=== PATIENT | female | born 1970 | race African-American/Black ===

== ENCOUNTER 2017-12-02 08:09 | Observation (INO) | payer BC ==
[2017-12-02 08:15] VITALS: BMI 32.4
[2017-12-02] MEDS ORDERED: morphine CARPU-JECT 4 MG/1 ML DISP.SYRIN IVPUSH ONE (08:19)
[2017-12-02] MEDS ORDERED: ONDANSETRON 4 MG/2 ML VIAL IVPUSH ONE (08:19)
--- NOTE | 2017-12-02 08:30 | PDOC ---
Attending Attestation - HPI HPI: 12/02/17 09:27 The patient is a 47 year old female, with a significant PMH of graves disease, celiacs disease, cholecystectomy (surgery performed at [place], [place]), partial bowel obstruction (no surgery, 2011) who presents to the emergency department with epigastric abdominal pain since 3 am this morning. The patient reports the abdominal pain as diffuse but located mostly in the epigastric region. The patient also reports nausea and vomiting beginning around 5 am (non bloody, non bilious). The patient states her last bowel movement was yesterday which she describes as normal (denies diarrhea, melena, hematochezia). The patient denies chest pain, shortness of breath, headache and dizziness. Denies fever, chills, diarrhea and constipation. Denies dysuria, frequency, urgency and hematuria. Allergies: NKA Past surgical history: cholecystectomy (surgery performed at [place], [place]) - Physicial Exam PE: 12/02/17 09:40 Vitals: Triage vital signs reviewed General Appearance: No acute distress, well nourished, well developed Head: Atraumatic Neck: Supple; No nuchal rigidity Chest Wall: Nontender Cardiac: Regular rate and rhythm, no murmurs, no rubs, no gallops Lungs: Clear to auscultation bilateral, good air movement bilaterally Abdomen: (+) Tenderness to the epigastric region. No guarding. No rebound. Soft , nondistended. Rectal: Exam deferred Extremities: Full range of motion to all extremities, no cyanosis, clubbing, or edema Skin: Warm and dry, no rashes or lesions, no rash, no petechiae Neuro: AOX3; Cranial Nerves 2-12 grossly intact, Strength intact to all extremities, Sensation intact to all extremities, gait normal Psych: Normal mood, normal affect - Medical Decision Making 12/02/17 09:28 The patient is a 47 year old female, with a significant PMH of graves disease, celiacs disease, cholecystectomy (surgery performed at [place], [place]), partial bowel obstruction (no surgery, 2011) who presents to the emergency department with epigastric abdominal pain since 3 am this morning and nausea with vomiting since 5 am. Plan: Labs, EKG, Meds, Abdomen-KUB, Abdomen and Pelvis CT w/ contrast. Documentation prepared by Alin Alonso, acting as medical administrative specialist for Dustin Sherman MD. <Alin Alonso - Last Filed: 12/02/17 09:52> - Resident Resident Name: Juan Carlos Zhang - ED Attending Attestation I have performed the following: I have examined & evaluated the patient, The case was reviewed & discussed with the resident, I agree w/resident's findings & plan, Exceptions are as noted - Medical Decision Making 12/02/17 12:09 Differential diagnosis includes partial small bowel obstruction celiac disease viral gastrointestinal illness: We'll treat with pain meds and antiemetics IV fluids CAT scan with IV contrast observe and reassess Reevaluation: 11:45 PM CAT scan findings as dictated. No acute pathology noted on CAT scan. Patient still with persistent nausea vomiting abdominal discomfort despite 2 rounds of IV pain medication at this point we'll observe overnight for pain control additional antiemetics and further management. <Dustin Sherman - Last Filed: 12/02/17 15:49>
[2017-12-02] MEDS ORDERED: ONDANSETRON 4 MG/2 ML VIAL ONE ×3 (08:31→11:22)
[2017-12-02] MEDS ORDERED: morphine SULFATE 4 MG/ML VIAL ONE ×3 (08:31→13:44)
[2017-12-02] MEDS ORDERED: FAMOTIDINE IV 20 MG/12 ML VIAL IVPUSH ONE (08:37)
[2017-12-02 08:46] LABS: BASO % 0.6 % (0-2.0); EOS % 1.1 % (0-4.5); HEMATOCRIT 41.3 % (32.4-45.2); HEMOGLOBIN 13.8 GM/dL (10.7-15.3); LYMPH % 21.9 % (8-40); MCH 30.8 pg (25.7-33.7); MCHC 33.5 g/dl (32.0-36.0); MEAN PLT VOLUME 7.9 fl (7.5-11.1); MONO % 6.6 % (3.8-10.2); NEUT % 69.8 % (42.8-82.8); PLATELET COUNT 342 K/MM3 (134-434); RBC 4.49 M/mm3 (3.60-5.2)
[2017-12-02 08:53] LABS: INR 0.99 (0.82-1.09); PROTHROMBIN TIME (PATIENT) 11.2 SEC (9.7-13.0)
--- NOTE | 2017-12-02 08:55 | PDOC ---
History of Present Illness - General Chief Complaint: Pain, Acute Stated Complaint: NAUSEA, ABD PAIN Time Seen by Provider: 12/02/17 08:17 History Source: Patient Exam Limitations: No Limitations - History of Present Illness Initial Comments: 12/02/17 08:46 47f with pmh of partial bowel obstruction, Grave's disease and celiac disease presents to the ED with nausea, vomiting and abdominal pain since 3am this morning with the first episode of vomiting happening around 5am. Last moved her bowels yesterday morning. Denies blood in the vomitus, diarrhea, chest pain, dysuria. Past History - Past Medical History Allergies/Adverse Reactions: Allergies Allergy/AdvReac Type Severity Reaction Status Date / Time No Known Allergies Allergy Verified 12/02/17 08:12 Home Medications: Ambulatory Orders Prednisone 10 mg PO DAILY 12/02/17 COPD: No Thyroid Disease: Yes Other medical history: graves disease, celiac disease - Surgical History Cholecystectomy: Yes - Immunization History Immunization Up to Date: Yes - Suicide/Smoking/Psychosocial Hx Smoking History: Current every day smoker Number of Cigarettes Smoked Daily: 3 Information on smoking cessation initiated: Yes 'Breaking Loose' booklet given: 12/02/17 Hx Alcohol Use: No Drug/Substance Use Hx: No Review of Systems - Review of Systems Able to Perform ROS?: Yes Is the patient limited Algerian proficient: No Constitutional: Yes: Loss of Appetite. No: Unexplained wgt Loss HEENTM: No: Symptoms Reported Respiratory: No: Symptoms reported Cardiac (ROS): No: Symptoms Reported ABD/GI: Yes: Abdominal Distended, Nausea, Poor Appetite, Poor Fluid Intake, Vomiting, Abdominal cramping : No: Symptoms Reported Musculoskeletal: No: Symptoms Reported Integumentary: No: Symptoms Reported All Other Systems: Reviewed and Negative *Physical Exam - Vital Signs Last Vital Signs Temp Pulse Resp BP Pulse Ox 97.9 F 89 18 145/109 100 12/02/17 08:12 12/02/17 08:12 12/02/17 08:12 12/02/17 08:12 12/02/17 08:12 - Physical Exam General Appearance: Yes: Nourished, Appropriately Dressed, Moderate Distress HEENT: positive: EOMI, SHER, Normal ENT Inspection Respiratory/Chest: positive: Lungs Clear, Normal Breath Sounds. negative: Chest Tender, Respiratory Distress Cardiovascular: positive: Regular Rhythm, Regular Rate, S1, S2 Gastrointestinal/Abdominal: positive: Tender (upper quadrants), Flat, Soft, Decreased BS, Distended. negative: Guarding Musculoskeletal: positive: Normal Inspection. negative: CVA Tenderness Integumentary: positive: Normal Color, Dry, Warm Neurologic: positive: Fully Oriented, Alert, Normal Mood/Affect ED Treatment Course - LABORATORY CBC & Chemistry Diagram: 12/02/17 08:15 12/02/17 08:15 - RADIOLOGY Radiology Studies Ordered: Category Date Time Status ABDOMEN-KUB FLAT PLATE [RAD] Stat Radiology 12/02/17 08:18 Ordered - Medications Given in the ED: ED Medications Discontinued Medications Generic Name Dose Route Start Last Admin Trade Name Freq PRN Reason Stop Dose Admin Morphine Sulfate 4 mg 12/02/17 08:19 12/02/17 08:29 Morphine Injection - IVPUSH 12/02/17 08:20 4 mg ONCE ONE Administration Ondansetron HCl 4 mg 12/02/17 08:19 12/02/17 08:29 Zofran Injection IVPUSH 12/02/17 08:20 4 mg ONCE ONE Administration Medical Decision Making - Medical Decision Making 12/02/17 09:33 47f with pmh of celiac, part sbo and graves presents with nausea, vomiting and abdominal pain since 5am. Will evaluate for sbo with basic labs, lactate and flat plate manage discomfort with Zofran, fluids and morphine 12/02/17 09:42 Beta negative, lactate 2.1 12/02/17 10:01 Abdominal xray KUB-Flat plate: No evidence of intestinal obstruction. The right diaphragm is elevated. Right upper quadrant surgical clips. IUD is noted. 12/02/17 10:57 No evidence of SBO or acute pathology within the abdomen or pelvis. This is likely gastroenteritis/gastritis. Will give hydrate, reassess 12/02/17 12:05 Hospitalist microblogged for admission *DC/Admit/Observation/Transfer Diagnosis at time of Disposition: Intractable abdominal pain - Discharge Dispostion Admit: Yes - Referrals - Patient Instructions - Post Discharge Activity
[2017-12-02 09:04] LABS: ALBUMIN 4.1 g/dl (3.4-5.0); ANION GAP 12 (8-16); BLOOD UREA NITROGEN 14 mg/dL (7-18); CALCIUM 9.2 mg/dL (8.5-10.1); CHLORIDE 103 mmol/L (98-107); CO2 22 mmol/L (21-32); CREATININE 1.1 mg/dL (0.55-1.02); GLUCOSE,RANDOM 93 mg/dL (74-106); POTASSIUM 3.7 mmol/L (3.5-5.1); SGOT/AST 15 U/L (15-37); SGPT/ALT 18 U/L (12-78); SODIUM 137 mmol/L (136-145); TOT PROT 7.7 g/dl (6.4-8.2)
[2017-12-02 09:05] LABS: ALK PHOS 67 U/L (45-117)
[2017-12-02] MEDS ORDERED: FAMOTIDINE 20 MG/50 ML IVPB 20 MG/50 ML MG IVPB ONE (09:30)
[2017-12-02 09:37] LABS: URINE APPEARANCE SLCLOUDY; URINE BILIRUBIN NEGATIVE (<2.0 mg/dL); URINE COLOR LTYELLOW; URINE GLUCOSE (UA) NEGATIVE (NEGATIVE); URINE KETONE TRACE (NEGATIVE); URINE LEUK ESTERASE NEGATIVE (NEGATIVE); URINE NITRITE NEGATIVE (NEGATIVE); URINE PROTEIN NEGATIVE (NEGATIVE); URINE UROBILINOGEN NEGATIVE mg/dL (0.2-1.0)
--- NOTE | 2017-12-02 09:42 | EKG ---
Test Reason : Blood Pressure : / mmHG Vent. Rate : 062 BPM Atrial Rate : 062 BPM P-R Int : 200 ms QRS Dur : 078 ms QT Int : 404 ms P-R-T Axes : 052 034 037 degrees QTc Int : 410 ms NORMAL SINUS RHYTHM WITH SINUS ARRHYTHMIA NONSPECIFIC ST ABNORMALITY ABNORMAL ECG NO PREVIOUS ECGS AVAILABLE Confirmed by LAUREL CHOWDHURY MD ([id number]) on 12/02/2017 9:41:50 AM Referred By: Confirmed By:LAUREL CHOWDHURY MD
[2017-12-02] MEDS ORDERED: SODIUM CHLORIDE 0.9% 1000 ML INFUS.BAG IV ONE (10:56)
[2017-12-02] MEDS ORDERED: LIDOCAINE VISCOUS 2% ORAL/TOP 20 ML UNIT-DOSE CUP MM ONE (11:12)
[2017-12-02] MEDS ORDERED: ONDANSETRON 4 MG/2 ML VIAL IVPB ONE (11:12)
[2017-12-02] MEDS ORDERED: MAG HYDROX/AL HYDROX/SIMETH 30 ML UNIT-DOSE CUP PO ONE (11:12)
[2017-12-02] MEDS ORDERED: morphine CARPU-JECT 2 MG/1 ML DISP.SYRIN IVPUSH ONE (11:13)
[2017-12-02] MEDS ORDERED: MAG HYDROX/AL HYDROX/SIMETH 30 ML UNIT-DOSE CUP ONE (11:18)
[2017-12-02] MEDS ORDERED: LIDOCAINE VISCOUS 2% ORAL/TOP 20 ML UNIT-DOSE CUP ONE (11:21)
--- NOTE | 2017-12-02 12:40 | HP ---
CHIEF COMPLAINT: Vomiting PCP: Unknown HISTORY OF PRESENT ILLNESS: 47 yo woman with pmh of partial SBO, graves disease, celiac dz who presents to ED with N/V and abdominal pain beginning this AM. Pt was in her usual state of health until this morning around 3AM, when she reports the onset of acute, diffuse abdominal pain, mainly localizing to epigastrium. Pt similarly endorses N/V beginning at 5AM. Last BM was in the evening the day before yesterday; normal in caliber, brown and soft, with no blood. Pt with no appetite and persistent Nonbloody nonbilious vomiting since 5AM. Able to tolerate clears PO, however vomits them up 20 minutes later. Pt describes pain as diffuse, burning, bandlike, focally tender in epigastrium, with sharp focal pain in lower back. Pt with chronic constipation, however takes no medication and no recent changes in stooling. Pt states she did have mild gastric pain one week prior and has been very vigilant about her diet since then. Denies f/c, diarrhea, cp, sob, ZHU , dizziness, diarrhea, constipation, dysuria, frequency, urgency, hematuria, melena, hematochezia. Pt with no dietary changes, sick contacts, recent travel. No hx of IBD, pancreatitis, GERD, gastritis. Pt with prior colonoscopy and EGD in 2012 at time of diagnosis of celiac dz. Results were normal. Pt is visiting from [place] to see her mother who is on hospice at [facility]. She intermittently follows with a senior cognos developer at [facility]. ER course was notable for: (1)Normal vitals (2)No lab abnormalities (3)Imaging negative for acute abdominal process Recent Travel: None PAST MEDICAL HISTORY: Partial SBO (secondary to ?intestinal edema/inflammation) Graves dz Celiac disease Drug-induced lupus Fibromyalgia PAST SURGICAL HISTORY: GB removal (complicated by sepsis) Social History: Smoking: current smoker, 3 cigs/day Alcohol: social drinker Drugs: no Family History: Mother with breast cancer, DVTs Allergies No Known Allergies Allergy (Verified 12/02/17 08:12) HOME MEDICATIONS: Home Medications Medication Instructions Recorded Prednisone 10 mg PO DAILY 12/02/17 REVIEW OF SYSTEMS CONSTITUTIONAL: Absent: fever, chills, diaphoresis, generalized weakness, malaise, loss of appetite, weight change HEENT: Absent: rhinorrhea, nasal congestion, throat pain, throat swelling, difficulty swallowing, mouth swelling, ear pain, eye pain, visual changes CARDIOVASCULAR: Absent: chest pain, syncope, palpitations, irregular heart rate, lightheadedness , peripheral edema RESPIRATORY: Absent: cough, shortness of breath, dyspnea with exertion, orthopnea, wheezing, stridor, hemoptysis GASTROINTESTINAL: nausea, vomiting, abdominal pain Absent: abdominal distension, diarrhea, constipation, melena, hematochezia GENITOURINARY: Absent: dysuria, frequency, urgency, hesitancy, hematuria, flank pain, genital pain MUSCULOSKELETAL: Absent: myalgia, arthralgia, joint swelling, back pain, neck pain SKIN: Absent: rash, itching, pallor HEMATOLOGIC/IMMUNOLOGIC: Absent: easy bleeding, easy bruising, lymphadenopathy, frequent infections ENDOCRINE: Absent: unexplained weight gain, unexplained weight loss, heat intolerance, cold intolerance NEUROLOGIC: Absent: headache, focal weakness or paresthesias, dizziness, unsteady gait, seizure, mental status changes, bladder or bowel incontinence PSYCHIATRIC: Absent: anxiety, depression, suicidal or homicidal ideation, hallucinations. PHYSICAL EXAMINATION Vital Signs - 24 hr Intake & Output 11/29/17 11/30/17 12/01/17 12/02/17 23:59 23:59 23:59 23:59 Weight 85.729 kg 12/02/17 12/02/17 08:12 08:41 Temperature 97.9 F 98.6 F Pulse Rate 89 78 Pulse Rate [ 78 Left Apical] Respiratory 18 16 Rate Blood Pressure 145/109 Blood Pressure 135/74 [Left Arm] O2 Sat by Pulse 100 98 Oximetry (%) GENERAL: Middle aged woman, NAD HEAD: Normal with no signs of trauma. EYES: Pupils equal, round and reactive to light, extraocular movements intact, sclera anicteric, conjunctiva clear. No lid lag. EARS, NOSE, THROAT: Ears normal, nares patent, oropharynx clear without exudates. Moist mucous membranes. NECK: Normal range of motion, supple without lymphadenopathy, JVD, or masses. LUNGS: Breath sounds equal, clear to auscultation bilaterally. No wheezes, and no crackles. No accessory muscle use. HEART: Regular rate and rhythm, normal S1 and S2 without murmur, rub or gallop. ABDOMEN: + TTP in epigsatrium. Not distended, hypoactive bowel sounds, no guarding, no rebound, no masses. No hepatomegaly or splenomegaly. MUSCULOSKELETAL: Normal range of motion at all joints. No bony deformities or tenderness. No CVA tenderness. UPPER EXTREMITIES: 2+ pulses, warm, well-perfused. No cyanosis. No clubbing. No peripheral edema. LOWER EXTREMITIES: 2+ pulses, warm, well-perfused. No calf tenderness. trace pedal edema noted. NEUROLOGICAL: Cranial nerves II-XII intact. Normal speech. Gait not evaluated. PSYCHIATRIC: Cooperative. Good eye contact. Appropriate mood and affect. Laboratory Results - last 24 hr CBC, BMP 12/02/17 08:15 12/02/17 08:15 12/02/17 12/02/17 12/02/17 08:15 08:15 08:15 WBC 10.0 RBC 4.49 Hgb 13.8 Hct 41.3 MCV 92.0 MCH 30.8 MCHC 33.5 RDW 14.0 Plt Count 342 MPV 7.9 Neutrophils % 69.8 Lymphocytes % 21.9 Monocytes % 6.6 Eosinophils % 1.1 Basophils % 0.6 PT with INR 11.20 INR 0.99 PTT (Actin FS) 27.0 Sodium 137 Potassium 3.7 Chloride 103 Carbon Dioxide 22 Anion Gap 12 BUN 14 Creatinine 1.1 H Creat Clearance w eGFR 53.71 Random Glucose 93 Lactic Acid Calcium 9.2 Total Bilirubin 1.0 AST 15 ALT 18 Alkaline Phosphatase 67 Total Protein 7.7 Albumin 4.1 Beta HCG, Quant < 1.0 Urine Color Urine Appearance Urine pH Ur Specific Velarde Urine Protein Urine Glucose (UA) Urine Ketones Urine Blood Urine Nitrite Urine Bilirubin Urine Urobilinogen Ur Leukocyte Esterase Urine HCG, Qual 12/02/17 12/02/17 12/02/17 08:20 09:20 09:22 WBC RBC Hgb Hct MCV MCH MCHC RDW Plt Count MPV Neutrophils % Lymphocytes % Monocytes % Eosinophils % Basophils % PT with INR INR PTT (Actin FS) Sodium Potassium Chloride Carbon Dioxide Anion Gap BUN Creatinine Creat Clearance w eGFR Random Glucose Lactic Acid 2.1 H Calcium Total Bilirubin AST ALT Alkaline Phosphatase Total Protein Albumin Beta HCG, Quant Urine Color Ltyellow Urine Appearance Slcloudy Urine pH 9.0 H Ur Specific Velarde 1.012 Urine Protein Negative Urine Glucose (UA) Negative Urine Ketones Trace H Urine Blood Negative Urine Nitrite Negative Urine Bilirubin Negative Urine Urobilinogen Negative Ur Leukocyte Esterase Negative Urine HCG, Qual Negative Ab XR 12/02 - No intestinal obstruction CT A/P 12/02 - IMPRESSION: No evidence of SBO or acute pathology within the abdomen or pelvis. Please see above discussion. EKG - rate of 62, NSR, QTC 410, no ST/TW changes ASSESSMENT/PLAN: 47 yo woman with pmh of partial SBO, graves disease, celiac dz who presents to ED with N/V and abdominal pain beginning this AM. Likely viral gastritis, r/o pancreatitis given complaint of back pain. #Abdominal pain/emesis - Imaging negative for acute process - IVFs - pain control with IV morphine - zofran for N/V - bowel rest - monitor for infectious symptoms - GI consulted - Dr. Weston - trend lactate - lipase, amylase - Protonix 40mg IV BID #Graves dz - c/w home meds - TSH #Celiac dz - -outpt f/u -dietary counseling PPX EAM SCDs FEN D5wNS +KCL daily lytes NPO for now, advance as tolerated Plan discussed with attending, Dr. Kel Farmer, PGY1 Visit type - Emergency Visit Emergency Visit: Yes Care time: The patient presented to the Emergency Department on the above date and was hospitalized for further evaluation of their emergent condition. - New Patient This patient is new to me today: Yes Date on this admission: 12/02/17 - Critical Care Critical Care patient: No Hospitalist Screening - Colonoscopy Questionnaire Colonoscopy Questionnaire: Colonoscopy Questionnaire - Patient: 50 - 75 years old and never had a screening colonoscopy: No History of colon or rectal polyps, or CA: Unknown History of IBD, Crohn's disease or UC: Unknown History of abdominal radiation therapy as a child: Unknown - Relative: 1 with colon or rectal CA, or polyps at age 60 or younger: Unknown Colon or rectal CA diagnosed at age 45 or younger: Unknown Multiple relatives with colon or rectal CA: Unknown - Outcome: Screening Result: Negative Screen
[2017-12-02] MEDS ORDERED: ONDANSETRON 4 MG/2 ML VIAL IVPUSH PRN (13:22)
[2017-12-02] MEDS ORDERED: D5-NS + 20 MEQ KCL - 20 MEQ/1,000 ML INFUS.BAG IV SCH (13:30)
--- NOTE | 2017-12-02 13:44 | PN ---
Teaching Attending Note Name of Resident: Diogenes Farmer ATTENDING PHYSICIAN STATEMENT I saw and evaluated the patient. I reviewed the resident's note and discussed the case with the resident. I agree with the resident's findings and plan as documented. SUBJECTIVE: Patient is feeling better, c/o ,mild abdominal pain. OBJECTIVE: Vital Signs Temperature 98.6 F 12/02/17 08:41 Pulse Rate 78 05 08:41 Respiratory Rate 16 12/02/17 08:41 Blood Pressure 135/74 12/02/17 08:41 O2 Sat by Pulse Oximetry (%) 99 12/02/17 08:41 GENERAL: Awake, alert, and fully oriented, in no acute distress. HEAD: Normal with no signs of trauma. EYES: Pupils equal, round and reactive to light, extraocular movements intact, sclera anicteric, conjunctiva clear. EARS, NOSE, THROAT: Ears normal, oropharynx clear without exudates. Moist mucous membranes. NECK: Normal range of motion, supple without lymphadenopathy, JVD, or masses. LUNGS: Breath sounds equal, clear to auscultation bilaterally. No wheezes, and no crackles. No accessory muscle use. HEART: Regular rate and rhythm, normal S1 and S2 without murmur, rub or gallop. ABDOMEN: mild epigsatric pain Soft, nontender, not distended, normoactive bowel sounds, no guarding, no rebound, no masses. No hepatospleenomegaly. MUSCULOSKELETAL: Normal range of motion at all joints. No bony deformities or tenderness. No CVA tenderness. EXTREMITIES: 2+ pulses, warm, well-perfused. No cyanosis. No clubbing. No peripheral edema. NEUROLOGICAL: Cranial nerves II-XII intact. Normal speech. Normal gait. PSYCHIATRIC: Cooperative. Good eye contact. Appropriate mood and affect. SKIN: Warm, dry, normal turgor, no rashes or lesions noted, normal capillary refill. CBCD WBC 10.0 K/mm3 (4.0-10.0) 12/02/17 08:15 RBC 4.49 M/mm3 (3.60-5.2) 12/02/17 08:15 Hgb 13.8 GM/dL (10.7-15.3) 12/02/17 08:15 Hct 41.3 % (32.4-45.2) 12/02/17 08:15 MCV 92.0 fl (80-96) 12/02/17 08:15 MCHC 33.5 g/dl (32.0-36.0) 12/02/17 08:15 RDW 14.0 % (11.6-15.6) 12/02/17 08:15 Plt Count 342 K/MM3 (134-434) 12/02/17 08:15 MPV 7.9 fl (7.5-11.1) 12/02/17 08:15 CMP Sodium 137 mmol/L (136-145) 12/02/17 08:15 Potassium 3.7 mmol/L (3.5-5.1) 12/02/17 08:15 Chloride 103 mmol/L (98-107) 12/02/17 08:15 Carbon Dioxide 22 mmol/L (21-32) 12/02/17 08:15 Anion Gap 12 (8-16) 12/02/17 08:15 BUN 14 mg/dL (7-18) 12/02/17 08:15 Creatinine 1.1 mg/dL (0.55-1.02) H 12/02/17 08:15 Creat Clearance w eGFR 53.71 (>60) 12/02/17 08:15 Random Glucose 93 mg/dL (74-106) 12/02/17 08:15 Calcium 9.2 mg/dL (8.5-10.1) 12/02/17 08:15 Total Bilirubin 1.0 mg/dL (0.2-1.0) 12/02/17 08:15 AST 15 U/L (15-37) 12/02/17 08:15 ALT 18 U/L (12-78) 12/02/17 08:15 Alkaline Phosphatase 67 U/L (45-117) 12/02/17 08:15 Total Protein 7.7 g/dl (6.4-8.2) 12/02/17 08:15 Albumin 4.1 g/dl (3.4-5.0) 12/02/17 08:15 Current Medications Generic Name Dose Route Start Last Admin Trade Name Freq PRN Reason Stop Dose Admin Dextrose/Sodium Chloride 20 meq in 1,000 mls @ 100 mls/hr 12/02/17 13:30 Dextrose 5%-Normal Saline+20 Meq Kcl - IV ASDIR ZACHARIAH Morphine Sulfate 1 mg 12/02/17 13:22 Morphine Sulfate IVPUSH Q4H PRN PAIN LEVEL 6-10 Ondansetron HCl 4 mg 12/02/17 13:22 Zofran Injection IVPUSH Q6H PRN NAUSEA Pantoprazole Sodium 40 mg 12/02/17 13:30 Protonix Iv IVPUSH BID [facility] Home Medications Medication Instructions Recorded Prednisone 10 mg PO DAILY 12/02/17 ASSESSMENT AND PLAN: Patient is a 47 yo woman with pmhx of partial SBO, graves disease, celiac dz who presents to ED with N/V and abdominal pain beginning this AM. Likely viral gastritis, r/o pancreatitis given complaint of back pain. #Acute abdominal pain most likely viral ,On IVF continue, ordered CRP, ESR on Protonix IV bid, repeat labs in am # Hx of Graves disease, s/p ablation now is hypothyroid continue levoxyl # hx of Celiac disease continue current diet. DVT Px:SCDs, early ambulation
[2017-12-02] MEDS: morphine SULFATE 4 MG/ML VIAL IVPUSH PRN ×2 (13:49→20:04)
[2017-12-02] MEDS: PANTOPRAZOLE SODIUM 40 MG VIAL IVPUSH SCH ×2 (14:10→21:55)
[2017-12-02] MEDS ORDERED: PANTOPRAZOLE SODIUM 40 MG/100 ML BAG IVPB ONE (14:12)
[2017-12-02 15:01] LABS: LIPASE 152 U/L (73-393)
[2017-12-02 15:12] LABS: AMYLASE 67 U/L (25-115)
[2017-12-02] MEDS: D5-NS + 20 MEQ KCL - 20 MEQ/1,000 ML INFUS.BAG IV SCH (15:25)
--- NOTE | 2017-12-02 16:00 | CON.GI ---
Consult Consult Specialty:: GI Reason for Consultation:: nausea, vomiting, abdominal bloating - History of Present Illness History of Present Illness: Chart reviewed. Events noted. As per initial intake: 47 yo woman with pmh of partial SBO, graves disease, celiac dz who presents to ED with N/V and abdominal pain beginning this AM. Pt was in her usual state of health until this morning around 3AM, when she reports the onset of acute, diffuse abdominal pain, mainly localizing to epigastrium. Pt similarly endorses N/V beginning at 5AM. Last BM was in the evening the day before yesterday; normal in caliber, brown and soft, with no blood. Pt with no appetite and persistent Nonbloody nonbilious vomiting since 5AM. Able to tolerate clears PO, however vomits them up 20 minutes later. Pt describes pain as diffuse, burning, bandlike, focally tender in epigastrium, with sharp focal pain in lower back. Pt with chronic constipation, however takes no medication and no recent changes in stooling. Pt states she did have mild gastric pain one week prior and has been very vigilant about her diet since then. Denies f/c, diarrhea, cp, sob, ZHU, dizziness, diarrhea, constipation, dysuria, frequency, urgency, hematuria, melena, hematochezia. Pt with no dietary changes, sick contacts, recent travel. No hx of IBD, pancreatitis, GERD, gastritis. Pt with prior colonoscopy and EGD in 2012 at time of diagnosis of celiac dz. Results were normal. At the time of this encounter in the ED, the patient appears comfortable, not in distress, or pain. Family members at bedside. Patient reports waking up last night with nausea and a few episodes of vomiting. No diarrhea, fever, chills, jaundice, joint, skin, eye symptoms. Had dinner with her daughter at [employer]. shared food. The daughter is asymptomatic. no recent travel, changes in medication, he will contact, exposure to antibiotics. He reports history of celiac enteropathy and "mostly" adhering to a gluten-free diet. Denies weight loss, dysphagia, odynophagia, dyspepsia, jaundice, chronic diarrhea, fatigue, joint, skin changes. Denies iron deficiency anemia. The celiac enteropathy was diagnosed by endoscopy a few years ago. Denies history of pancreatitis. Had cholecystectomy many years ago. No significant family history. Denies alcohol, chronic NSAIDs, and illicit drugs. - History Source History Provided By: Patient, Medical Record - Alcohol/Substance Use Hx Alcohol Use: No - Smoking History Smoking history: Current every day smoker Aproximately how many cigarettes per day: 3 Home Medications - Allergies Allergies/Adverse Reactions: Allergies Allergy/AdvReac Type Severity Reaction Status Date / Time No Known Allergies Allergy Verified 12/02/17 08:12 - Home Medications Home Medications: Ambulatory Orders Prednisone 10 mg PO DAILY 12/02/17 Family Disease History - Family Disease History Family History: Unremarkable (Noncontributory) Review of Systems Findings/Remarks: as per H&P and HPI Physical Exam-GI Vital Signs: Vital Signs Temperature 98.2 F 12/02/17 15:04 Pulse Rate 61 12/02/17 15:04 Respiratory Rate 18 12/02/17 15:04 Blood Pressure 127/76 12/02/17 15:04 O2 Sat by Pulse Oximetry (%) 100 12/02/17 15:04 Labs: CBC, BMP 12/02/17 08:15 12/02/17 08:15 INR, PTT INR 0.99 (0.82-1.09) 12/02/17 08:15 Imaging - Results Cat Scan: Report Reviewed Problem List - Problems (1) Acute gastroenteritis Code(s): K52.9 - NONINFECTIVE GASTROENTERITIS AND COLITIS, UNSPECIFIED Assessment/Plan given the acuity of the onset, acute viral, or bacterial gastroenteritis/ enterocolitis are possibilities. No signs of toxicity. No signs of surgical abdomen on exam. Recommend bowel rest, IV hydration, celiac panel, iron, B12, folate, ESR, CRP and advance diet in a.m. if no events overnight. The plan was discussed with the patient. She is in agreement.
[2017-12-03] MEDS: D5-NS + 20 MEQ KCL - 20 MEQ/1,000 ML INFUS.BAG IV SCH ×3 (01:36→13:10)
[2017-12-03 08:28] LABS: BASO % 0.2 % (0-2.0); HEMOGLOBIN 12.5 GM/dL (10.7-15.3); LYMPH % 16.4 % (8-40); MCH 31.2 pg (25.7-33.7); MCHC 33.9 g/dl (32.0-36.0); MEAN CELL VOLUME 92.1 fl (80-96); MEAN PLT VOLUME 7.9 fl (7.5-11.1); MONO % 7.4 % (3.8-10.2); PLATELET COUNT 277 K/MM3 (134-434); RBC 4.02 M/mm3 (3.60-5.2); RDW 13.8 % (11.6-15.6); WHITE BLOOD COUNT 7.8 K/mm3 (4.0-10.0)
--- NOTE | 2017-12-03 08:44 | DS ---
Physical Exam: SUBJECTIVE: Patient seen and examined Patient is feeling better , no further pain, tolerated diet well. OBJECTIVE: Vital Signs Temperature 98.5 F 12/03/17 06:00 Pulse Rate 65 12/03/17 06:00 Respiratory Rate 20 12/03/17 06:00 Blood Pressure 152/88 12/03/17 06:00 O2 Sat by Pulse Oximetry (%) 98 12/03/17 05:00 PHYSICAL EXAM GENERAL: The patient is awake, alert, and fully oriented, in no acute distress. HEAD: Normal with no signs of trauma. EYES: PERRL, extraocular movements intact, sclera anicteric, conjunctiva clear. ENT: Ears normal, nares patent, oropharynx clear without exudates, moist mucous membranes. NECK: Trachea midline, full range of motion, supple. LUNGS: Breath sounds equal, clear to auscultation bilaterally, no wheezes, no crackles, no accessory muscle use. HEART: Regular rate and rhythm, S1, S2 without murmur, rub or gallop. ABDOMEN: Soft, nontender, nondistended, normoactive bowel sounds, no guarding, no rebound, no hepatosplenomegaly, no masses. EXTREMITIES: 2+ pulses, warm, well-perfused, no edema. NEUROLOGICAL: Cranial nerves II through XII grossly intact. Normal speech, gait not observed. PSYCH: Normal mood, normal affect. SKIN: Warm, dry, normal turgor, no rashes or lesions noted. LABS CBCD WBC 7.8 K/mm3 (4.0-10.0) 12/03/17 07:00 RBC 4.02 M/mm3 (3.60-5.2) 12/03/17 07:00 Hgb 12.5 GM/dL (10.7-15.3) 12/03/17 07:00 Hct 37.0 % (32.4-45.2) 12/03/17 07:00 MCV 92.1 fl (80-96) 12/03/17 07:00 MCHC 33.9 g/dl (32.0-36.0) 12/03/17 07:00 RDW 13.8 % (11.6-15.6) 12/03/17 07:00 Plt Count 277 K/MM3 (134-434) 12/03/17 07:00 MPV 7.9 fl (7.5-11.1) 12/03/17 07:00 CMP Sodium 137 mmol/L (136-145) 12/02/17 08:15 Potassium 3.7 mmol/L (3.5-5.1) 12/02/17 08:15 Chloride 103 mmol/L (98-107) 12/02/17 08:15 Carbon Dioxide 22 mmol/L (21-32) 12/02/17 08:15 Anion Gap 12 (8-16) 12/02/17 08:15 BUN 14 mg/dL (7-18) 12/02/17 08:15 Creatinine 1.1 mg/dL (0.55-1.02) H 12/02/17 08:15 Creat Clearance w eGFR 53.71 (>60) 12/02/17 08:15 Random Glucose 93 mg/dL (74-106) 12/02/17 08:15 Calcium 9.2 mg/dL (8.5-10.1) 12/02/17 08:15 Total Bilirubin 1.0 mg/dL (0.2-1.0) 12/02/17 08:15 AST 15 U/L (15-37) 12/02/17 08:15 ALT 18 U/L (12-78) 12/02/17 08:15 Alkaline Phosphatase 67 U/L (45-117) 12/02/17 08:15 Total Protein 7.7 g/dl (6.4-8.2) 12/02/17 08:15 Albumin 4.1 g/dl (3.4-5.0) 12/02/17 08:15 Current Medications Generic Name Dose Route Start Last Admin Trade Name Freq PRN Reason Stop Dose Admin Dextrose/Sodium Chloride 20 meq in 1,000 mls @ 150 mls/hr 12/02/17 13:45 12/16 08:20 Dextrose 5%-Normal Saline+20 Meq Kcl - IV 12/03/17 20:09 150 mls/hr ASDIR ZACHARIAH Administration Morphine Sulfate 1 mg 12/02/17 13:22 12/02/17 20:04 Morphine Sulfate IVPUSH 1 mg Q4H PRN Administration PAIN LEVEL 6-10 Ondansetron HCl 4 mg 12/02/17 13:22 Zofran Injection IVPUSH Q6H PRN NAUSEA Pantoprazole Sodium 40 mg 12/02/17 13:30 12/02/17 21:55 Protonix Iv IVPUSH 40 mg BID ZACHARIAH Administration Home Medications Medication Instructions Recorded Prednisone 10 mg PO DAILY 12/02/17 HOSPITAL COURSE: Date of Admission:12/02/17 Date of Discharge: 12/03/17 Patient is a 47 yo woman with pmhx of partial SBO, graves disease, celiac dz who presents to ED with N/V and abdominal pain beginning this AM. Likely viral gastritis, r/o pancreatitis given complaint of back pain. #Acute abdominal pain resolved, tolerated diet , most likely viral , CRP wnl, # Hx of Graves disease, s/p ablation now is hypothyroid continue levoxyl # hx of Celiac disease continue current diet. will discharge the patient home. Minutes to complete discharge: 35 Discharge Summary Reason For Visit: INTRACTIABLE ABDOMINAL PAIN Current Active Problems Acute gastroenteritis (Acute) Intractable abdominal pain (Acute) - Instructions - Home Medications Comprehensive Discharge Medication List: Ambulatory Orders Prednisone 10 mg PO DAILY 12/02/17 This patient is new to me today: No Emergency Visit: Yes ED Registration Date: 12/02/17 Care time: The patient presented to the Emergency Department on the above date and was hospitalized for further evaluation of their emergent condition. Critical Care patient: No - Discharge Referral Referred to [facility] Med P.C.: No
[2017-12-03 08:46] LABS: ALBUMIN 3.3 g/dl (3.4-5.0); ANION GAP 4 (8-16); BLOOD UREA NITROGEN 6 mg/dL (7-18); CALCIUM 7.8 mg/dL (8.5-10.1); CHLORIDE 107 mmol/L (98-107); CO2 27 mmol/L (21-32); CREATININE 0.9 mg/dL (0.55-1.02); GLUCOSE,RANDOM 119 mg/dL (74-106); MAGNESIUM 2.3 mg/dL (1.8-2.4); POTASSIUM 4.2 mmol/L (3.5-5.1); SGOT/AST 11 U/L (15-37); SODIUM 138 mmol/L (136-145)
[2017-12-03 08:48] LABS: ALK PHOS 54 U/L (45-117); PHOSPHOROUS 2.1 mg/dL (2.5-4.9); SGPT/ALT 13 U/L (12-78); TOT PROT 6.2 g/dl (6.4-8.2)
[2017-12-03 08:59] LABS: CHOLESTEROL 175 mg/dL (50-200); TRIGLYCERIDES 80 mg/dL (35-160)
[2017-12-03 09:00] LABS: HDL CHOLESTEROL 77 mg/dL (40-60)
[2017-12-03] MEDS: PANTOPRAZOLE SODIUM 40 MG VIAL IVPUSH SCH (09:21)
--- NOTE | 2017-12-03 12:27 | PN ---
GI Progress Note Subjective: No acute events found sitting up eating a regular lunch without complaints - Objective Vital Signs: Vital Signs Temperature 98.0 F 12/03/17 08:00 Pulse Rate 66 12/03/17 08:00 Respiratory Rate 20 12/03/17 08:00 Blood Pressure 132/88 12/03/17 08:00 O2 Sat by Pulse Oximetry (%) 98 12/03/17 08:00 Constitutional: Calm Eyes: No: Sclera Icterus Cardiovascular: Yes: Regular Rate and Rhythm, Murmur (+ 2/6 systolic murmur ( Patient states being aware of this)) Respiratory: Yes: CTA Bilaterally Gastrointestinal Inspection: Yes: Scars (decorative umbilical ring scar). No: Distention ...Auscultate: Yes: Normoactive Bowel Sounds ...Palpate: No: Hepatomegaly, Soft, Tenderness ...Percussion: No: Tympanitic Edema: No (No LE edema) Neurological: Yes: Alert, Oriented Labs: CBC, BMP 12/03/17 07:00 12/03/17 07:00 INR, PTT INR 0.99 (0.82-1.09) 12/02/17 08:15 Hepatic Panel Total Bilirubin 1.0 mg/dL (0.2-1.0) 12/03/17 07:00 AST 11 U/L (15-37) L 12/03/17 07:00 ALT 13 U/L (12-78) 12/03/17 07:00 Alkaline Phosphatase 54 U/L (45-117) 12/03/17 07:00 Albumin 3.3 g/dl (3.4-5.0) L 12/03/17 07:00 Problem List - Problems (1) Acute gastroenteritis Assessment/Plan: Clinically much improved and tolerating PO If continuing to do well and tolerating PO, no GI objection to D/C Will be following up with her business services assistant in [place] Advised that she adhere to a gluten free diet given her history of celiac disease Code(s): K52.9 - NONINFECTIVE GASTROENTERITIS AND COLITIS, UNSPECIFIED
[2017-12-03 14:30] VITALS: BP 132/76; PULSE 61; TEMP 99.1
== END 2017-12-03 15:10 | disposition home or self-care (01) ==
LOC: JER 08:09 → JERBED 14:24 → J6S 16:06
PROVIDERS: ADMIT Internal Medicine; ATTEND Internal Medicine
PROC: 3E033NZ Introduction of Analgesics, Hypnotics, Sedatives into Peripheral Vein, Percutaneous Approach (ICD-10-PCS; principal; 2017-12-02)
PROC: 3E033GC Introduction of Other Therapeutic Substance into Peripheral Vein, Percutaneous Approach (ICD-10-PCS; 2017-12-02)
PROC: 3E0337Z Introduction of Electrolytic and Water Balance Substance into Peripheral Vein, Percutaneous Approach (ICD-10-PCS; 2017-12-02)
DX: K52.9 Noninfective gastroenteritis and colitis, unspecified (principal); R10.13 Epigastric pain; R11.2 Nausea with vomiting, unspecified; E05.00 Thyrotoxicosis with diffuse goiter without thyrotoxic crisis or storm; K90.0 Celiac disease; F17.210 Nicotine dependence, cigarettes, uncomplicated
CPT/HCPCS: 36415; 74018-TC-FY; 74177-TC; 80053; 80061; 81003; 82150; 83605; 83690; 83721; 83735; 84100; 84443; 84702; 84703; 85025; 85610; 85651; 85730; 86140; 93005; 93010; 99285-25; G0378; J7030